=== PATIENT | male | born 1990 | race Two or more races ===

== ENCOUNTER 2022-01-14 00:37 | Emergency (ER) | payer SELFPAY, OTHER | END 2022-01-14 02:50 | LOC: CSHERS 00:37 | DX: S09.90XA Unspecified injury of head, initial encounter (principal); J45.909 Unspecified asthma, uncomplicated; W01.0XXA Fall on same level from slipping, tripping and stumbling without subsequent striking against object, initial encounter | CPT/HCPCS: 70450; 71045; 93005 ==